=== PATIENT | female | born 1950 | race Caucasian/White ===

== ENCOUNTER 2022-02-18 07:50 | Outpatient (CLI) | payer MEDICARE, BC, SELFPAY ==
--- OUTSIDE RECORDS SUMMARY | 2022-02-18 08:13 | XMS_ITS | Clinical Summary ---
:1950 Author Organization [facility] [place] [address] Care Team Providers Name Role Phone Navin Watt MD Primary Care Provider Allergies No known active allergies Medications Medication Sig Dispensed Refills Start Date End Date Status ACETAMINOPHEN ORAL Take by mouth 0 Active each time if needed. cyanocobalamin (VITAMIN Take 1,000 mcg 0 Active B-12) 1,000 mcg tablet by mouth once daily. cholecalciferol (VITAMIN Take 2,000 Units 0 Active D-3) 2,000 unit capsule by mouth once daily. DIPHENHYDRAMINE HCL ORAL Take by mouth 0 Active each time if needed. lecithin 1,200 mg cap Take by mouth. 0 Active vitamin e 400 unit Take 400 Units 0 Active capsule by mouth once daily. MULTIVITAMIN ORAL Take by mouth 0 Active once daily. aspirin (ECOTRIN) 81 mg Take 81 mg by 0 Active enteric coated tablet mouth once daily with a meal. calcium Take by mouth 0 Active carbonate-vitamin D3 600 once daily. mg(1,500mg) -100 unit cap ascorbic acid, vitamin Take 500 mg by 0 Active C, (VITAMIN C) 500 mg mouth once tablet daily. atorvastatin (LIPITOR) Take 40 mg by 10 02/09/2018 Active 40 mg tablet mouth at bedtime. nitroglycerin Place 1 tablet 25 tablet 0 02/21/2018 Active (NITROSTAT) 0.4 mg under the tongue sublingual every 5 minutes tabletIndications: ASHD if needed. (arteriosclerotic heart disease) Active Problems Problem Noted Date Fibromyalgia 01/15/2018 Gastritis 01/15/2018 Dyslipidemia 01/15/2018 History of cataract surgery 01/15/2018 Family history of premature CAD Abnormal cardiovascular stress test Bilateral carotid bruits Overview: -mild common carotid intimal thickening per 01/2018 carotid US ASHD (arteriosclerotic heart disease) Abnormal cardiovascular stress test Family History Medical History Relation Name Comments Heart Disease Other numerous family members have had coronary artery disease in their 40's-50's Relation Name Status Comments Other Social History Tobacco Use Types Packs/Day Years Used Date Never Smoker Smokeless Tobacco: Never Used Alcohol Use Standard Drinks/Week Comments No 0 (1 standard drink = 0.6 oz pure alcoho l) Sex Assigned at Date Recorded Not on file Obstetrics History Last Filed Vital Signs Vital Sign Reading Time Taken Comments Blood Pressure 123/79 02/21/2018 4:45 PM CDT Pulse 78 02/21/2018 4:45 PM CDT Temperature 36.2 ??C (97.2 ??F) 02/21/2018 4:45 PM CDT Respiratory Rate 16 02/21/2018 4:45 PM CDT Oxygen Saturation 97% 02/21/2018 4:45 PM CDT Inhaled Oxygen Concentration - - Weight 61.3 kg (135 lb 3.2 oz) 02/21/2018 8:58 AM CDT Height 157.5 cm (5' 2) 02/21/2018 8:58 AM CDT Body Mass Index 24.73 02/21/2018 8:58 AM CDT Plan of Treatment Health Maintenance Due Date Last Done Comments COVID-19 vaccine series (#1) 1950 Tdap 1959 Depression screening for age 12+ 1960 BMI (ht and wt on same day) for age 18+ 1966 Hepatitis C screening for age 18-79 1966 Tetanus booster 1968 Colonoscopy through age 75 1993 Mammogram for age 45-75 1993 Zoster (shingles) series for age 50+ (1 of 2) 1998 DEXA/DXA scan for age 65+ 2013 Pneumococcal series for age 65+ (1 - PCV) 2013 Influenza for age 65+ 01/27/2022 Lipids for age 45-75 02/21/2023 02/21/2018 Results Not on filefrom Last 3 Months Insurance Payer Benefit Plan / Subscriber ID Effective Dates Phone Addre ss Type Group MEDICARE PART B MEDICARE PART B [id number] 2013-Prese ATTN: CLAIMS - HB USE ONLY HB ONLY nt [address] [place] [address] [place] BLUE CROSS [id number] 2016-Presen [address] [address] [place] [address] [place], [place] [id number] BL[place] BL[place] [id number] 2016-[place] [address] [address] [place] [address] [place], [place] [id number] Advance Directives Documents on File Type Date 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
[2022-02-18 09:38] LABS: Albumin* 4.6 g/dL (3.3-5.0)
[2022-02-18 09:39] LABS: Chloride* 99 mmol/L (96-114); Potassium* 4.2 mmol/L (3.6-5.1); Sodium* 140 mmol/L (135-149)
[2022-02-18 09:41] LABS: Bilirubin Total* 0.5 mg/dL (0.1-1.5); Carbon Dioxide* 33 mmol/L (20-32); Cholesterol* 187 mg/dL (90-199); Creatinine* 0.7 mg/dL (0.5-1.5); Estimated Glomerular Filt Rate 91 ml/min
[2022-02-18 09:42] LABS: Alanine Aminotransferase* 16 U/L (4-35); Alkaline Phosphatase* 76 U/L (40-150); Aspartate Amino Transferase* 27 U/L (12-35); Blood Urea Nitrogen* 18 mg/dL (7-30); Calcium* 9.7 mg/dL (8.4-10.6); Glucose* 117 mg/dL (60-115); Total Protein* 7.9 g/dL (6.0-8.3); Triglycerides* 108 mg/dL (40-149)
[2022-02-18 09:43] LABS: HDL Cholesterol* 55 mg/dL (>=50); LDL Cholesterol Calculated 110 mg/dL (<100)
[2022-02-18 09:57] LABS: Vitamin D 25 Hydroxy* 66 ng/mL (30-80)
[2022-02-18 12:03] LABS: Vitamin B12* 304 pg/mL (243-894)
== END 2022-02-18 07:51 | disposition home or self-care (01) ==
PROVIDERS: PCP Family Medicine; Visit Provider Family Medicine
DX: M85.80 Other specified disorders of bone density and structure, unspecified site (principal); R53.83 Other fatigue; E78.5 Hyperlipidemia, unspecified; E53.8 Deficiency of other specified B group vitamins
CPT/HCPCS: 80053; 80061; 82306; 82607; 84443

== ENCOUNTER 2022-02-21 14:40 | Outpatient (CLI) | payer MEDICARE, BC, SELFPAY ==
--- OUTSIDE RECORDS SUMMARY | 2022-02-21 14:43 | XMS_ITS | Clinical Summary ---
:1950 Author Organization [employer] 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
--- NOTE | 2022-02-21 15:00 | CRLHL7_ITS ---
For Patients: As a result of the Century Cures Act, medical imaging exams and procedure reports are released immediately into your electronic medical record. You may view this report before your referring provider. If you have questions, please contact your health care provider. BILATERAL DIGITAL SCREENING MAMMOGRAM WITH COMPUTER-AIDED DETECTION, 02/21/2022 CLINICAL HISTORY: Routine screening exam. COMPARISON: 02/08/2021, 07/16/2019, 06/13/2017, 04/20/2015. TECHNIQUE: Digital mammogram in CC and MLO projections including computer-aided detection (CAD). BREAST COMPOSITION: The breasts are heterogeneously dense, which may obscure small masses. FINDINGS: RIGHT Breast: Focal asymmetric density medial breast 3 cm from the nipple CC view only. LEFT Breast: No suspicious findings. IMPRESSION: RIGHT breast asymmetry/mass. RECOMMENDATIONS: Additional mammographic views of the RIGHT breast including 3D CC and 3D MLO. RIGHT breast ultrasound may also be required. BI-RADS Category 0: Incomplete: Need Additional Imaging Evaluation and/or Prior Mammograms for Comparison The [facility] will contact the patient for follow-up. A lay language report of this examination will be provided to the patient. Dictated by Thee Armando MD @ 02/22/2022 8:57:58 AM PT/Dictated by: Thee Armando MD @ 02/22/2022 8:58:00 AM (Electronically Signed)
== END 2022-02-21 14:41 | disposition home or self-care (01) ==
LOC: MAMMO 14:41
PROVIDERS: PCP Family Medicine; Visit Provider Family Medicine
DX: Z12.31 Encounter for screening mammogram for malignant neoplasm of breast (principal); N63.10 Unspecified lump in the right breast, unspecified quadrant
CPT/HCPCS: 77063; 77067

== ENCOUNTER 2022-02-24 07:47 | Outpatient (CLI) | payer MEDICARE, BC, SELFPAY ==
--- OUTSIDE RECORDS SUMMARY | 2022-02-24 07:49 | XMS_ITS | Clinical Summary ---
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
--- NOTE | 2022-02-24 08:00 | CRLHL7_ITS ---
For Patients: As a result of the Century Cures Act, medical imaging exams and procedure reports are released immediately into your electronic medical record. You may view this report before your referring provider. If you have questions, please contact your health care provider. Indication: Follow-up lung nodules Technique: Noncontrast CT chest Please note that all CT scans at this facility use dose modulation, iterative reconstruction, and/or weight-based dosing when appropriate to reduce radiation dose to as low as reasonably achievable. Comparison: 07/19/2018 Findings: Stable size and number of bilateral pulmonary nodules. The largest nodule on the left is located within the left lower lobe, , measuring 6 millimeters. The largest noncalcified nodule on the right measures 8 millimeters and is located within the right lower lobe, . stable calcified nodule within the right perihilar lung measures 1 cm, as before, . Other smaller nodules are present elsewhere. Vascular calcifications in the coronary arteries. No pleural effusion or pulmonary edema. No pneumothorax or infiltrate. No adenopathy. Simple cyst within the right hepatic lobe. No fracture. Impression: Stable bilateral pulmonary nodules measuring up to 1 cm. More than 3 years stability is present and no further follow-up necessary. Please note that all CT scans at this facility use dose modulation, iterative reconstruction, and/or weight-based dosing when appropriate to reduce radiation dose to as low as reasonably achievable. Dictated by Thee Armando MD @ 02/24/2022 9:14:47 AM (Electronically Signed)
== END 2022-02-24 07:48 | disposition home or self-care (01) ==
LOC: CT 07:47
PROVIDERS: PCP Family Medicine; Visit Provider Family Medicine
DX: R91.8 Other nonspecific abnormal finding of lung field (principal)
CPT/HCPCS: 71250

== ENCOUNTER 2022-03-01 09:56 | Outpatient (CLI) | payer MEDICARE, BC, SELFPAY ==
--- NOTE | 2022-03-01 09:45 | CRLHL7_ITS ---
For Patients: As a result of the Cures Act, medical imaging exams and procedure reports are released immediately into your electronic medical record. You may view this report before your referring provider. If you have questions, please contact your health care provider. RIGHT DIAGNOSTIC DIGITAL MAMMOGRAM WITH COMPUTER-AIDED DETECTION AND TOMOSYNTHESIS, 03/01/2022 INDICATION: Possible asymmetry. TECHNIQUE: CC and MLO views were obtained using full-field digital technique and interpreted with the benefit of computer-aided detection and tomosynthesis. COMPARISON FILM: 07/16/2019. BREAST COMPOSITION: The breasts are heterogeneously dense, which may obscure small masses. FINDINGS: Spot compression views demonstrate spreading out of the glandular tissue. The appearance of the RIGHT breast is stable from old mammograms. IMPRESSION: No mammographic findings for malignancy. RECOMMENDATION: Recommend return to yearly screening mammography. ASSESSMENT: BI-RADS Category 2: Benign A lay language report of this examination will be provided to the patient. RADHA TREVINO M.D. Diagnostic/Breast Radiologist [email or web address] Transcribed: 1:[address]/Dictated by: Radha Trevino MD @ 03/01/2022 1:22:00 PM (Electronically Signed)
--- OUTSIDE RECORDS SUMMARY | 2022-03-01 10:11 | XMS_ITS | Clinical Summary ---
:1950 Author Organization [facility] [place] [address] Care Team Providers Name Role Phone Navin [...] Group MEDICARE PART B MEDICARE PART B [id number] 2013-Prese ATTN: CLAIMS - HB USE ONLY HB ONLY nt [address] 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
== END 2022-03-01 09:57 | disposition home or self-care (01) ==
PROVIDERS: PCP Family Medicine; Visit Provider Family Medicine
DX: R92.8 Other abnormal and inconclusive findings on diagnostic imaging of breast (principal); R92.2 Inconclusive mammogram
CPT/HCPCS: 77065; G0279

== ENCOUNTER 2022-03-10 08:30 | Outpatient (RCR) | payer MEDICARE, BC, SELFPAY | END 2022-03-10 10:54 | disposition home or self-care (01) | PROVIDERS: PCP Family Medicine; Visit Provider Family Medicine | DX: M25.511 Pain in right shoulder (principal); Z51.89 Encounter for other specified aftercare | CPT/HCPCS: 97110; 97140; 97161 ==

== ENCOUNTER 2023-02-22 08:53 | Outpatient (CLI) | payer MEDICARE, BC, SELFPAY ==
--- OUTSIDE RECORDS SUMMARY | 2023-02-25 13:43 | XMS_ITS | Continuity of Care Document ---
Author Name Unknown Organization [facility] Address [address] [address] [place] [address] Phone Care Team Providers Care Public Speaking Teacher Name Role Phone Unavailable Unavailable Unavailable Allergies, Adverse Reactions, Alerts Substance Reaction Status Criticality No Known Allergies Active No Inform ation Medications Medication Instructions Dosage Effective Dates (start - stop) Status Comments atorvastatin 40 mg tablet take 1 tablet by oral route every day 40 MG - Active aspirin 81 mg tablet,delayed release take 1 tablet by oral route every day 81 MG - Active Vitamin D3 25 mcg (1,000 unit) tablet take 1 Tablet by Oral route every day 1 Tablet - Active Procedures Procedure Date Colonoscopy Flex; W/remov Les- 21 Colonoscopy Flex; W/bx 1/mx Level Iv-surg Path Gross/micro Advance Directives Directive Yes / No Effective Date File Name No Information Encounters Encounter Description Practice Location Reason(s) For Visit Diagnoses Date Provider Providers Copied on Encounter [facility], [address] [address], [place], [id number], [place] tel:[phone] [facility] No Information No Information Referring Provider: Yrn Borja MD, [address], [place], [address] . tel:[phone] [facility], [address] [address], [place], [id number], tel:[phone] [facility] GI Symptoms or Concerns (chief complaint) Positive colorectal cancer screening using Cologuard testColorectal polypsTortuous colonBenign neoplasm of cecumBenign neoplasm of descending colonOther fecal abnormalitiesO ther specified congenital malformations of intestine Jonh Pool. [address] [facility] [facility] [address], [place], [place], [id number], [place]. tel:[phone] Referring Provider: Annemarie Thomas MD, [address] [place], [address]. tel:[phone] [facility], [address] [address], [place], [place], [id number], [place] tel:[phone] No Information No Information Referring Provider: Annemarie Thomas MD, [address] [place], [address]. tel:[phone] Family History Family Member Type Diagnosis Age At Onset Mother Problem (finding) malignant neoplasm of u terus Sister Problem (finding) Alive and well Father Problem (finding) Daughter Problem (finding) Alive and well Immunizations Vaccine Date Status Comments influenza, high-dose seasona l, quadrivalent, .7mL dose, preservative free administered Note: [facility] bi-direct ional interface ; Source: Other Registry SARS-COV-2 (COVID-19) vaccin e, mRNA, spike protein, LNP, preservative free, 100 mcg/0.5mL dose administered Note: [facility] bi-direct ional interface ; Source: Other Registry SARS-COV-2 (COVID-19) vaccin e, mRNA, spike protein, LNP, preservative free, 100 mcg/0.5mL dose administered Note: [facility] bi-direct ional interface ; Source: Other Registry Pneumovax 23 administered Note: [facility] bi-d irectional interface ; Source: Other Registry Afluria Qd administered Note: [facility] bi-directional interface ; Source: Other Registry Prevnar 13 administered Note: [facility] bi-d irectional interface ; Source: Other Registry influenza, high dose seasona l, preservative-free administered Note: [facility] bi-direct ional interface ; Source: Other Registry influenza, high dose seasona l, preservative-free administered Note: [facility] bi-direct ional interface ; Source: Other Registry influenza, high dose seasona l, preservative-free administered Note: [facility] bi-direct ional interface ; Source: Other Registry influenza, high dose seasona l, preservative-free administered Note: [facility] bi-direct ional interface ; Source: Other Registry Influenza administered Note: [facility] bi-d irectional interface ; Source: Other Registry Influenza, seasonal, injecta ble, preservative free administered Note: [facility] bi-direct ional interface ; Source: Other Registry tetanus toxoid, reduced diphtheria toxoid, and acellular pertussis vaccine, adsorbed administered Note: [facility] b i-directional interface ; Source: Other Registry Payers Payer name Insurance type Covered democrat ID Authoriza tion(s) Blue Cross [place] Blue BL [id number] Social History Type Description Quantity Date Captured Comments Sex Female Smoking Status No Information Chief Complaint And Reason For Visit No Information Reason For Referral Reason For Referral No Information History Of Present Illness Encounter Date Complaint History Of Prese nt Illness GI Symptoms or Concerns Functional Status Date Functional Assessmen t No Information Instructions Date Instruction Additional Infor mation Colon Cancer Prevention Related to Colorectal polyps Colon Polyps Related to Color ectal polyps Assessments Type Assessment Date No Information Patient Care Teams Name Effective Dates (start - stop) Status Members No Information
== END 2023-02-22 08:54 | disposition home or self-care (01) ==
LOC: NFLDREF 02-25 13:41
PROVIDERS: PCP Family Medicine; Referring Provider Family Medicine; Visit Provider Family Medicine
DX: Z00.00 Encounter for general adult medical examination without abnormal findings (principal); E78.5 Hyperlipidemia, unspecified; R73.01 Impaired fasting glucose; E53.8 Deficiency of other specified B group vitamins; M79.7 Fibromyalgia; Z13.21 Encounter for screening for nutritional disorder; Z79.1 Long term (current) use of non-steroidal anti-inflammatories (NSAID); M85.80 Other specified disorders of bone density and structure, unspecified site; I25.10 Atherosclerotic heart disease of native coronary artery without angina pectoris
CPT/HCPCS: 80053; 80061; 82306; 82607

== ENCOUNTER 2023-05-25 10:00 | Outpatient (CLI) | payer MEDICARE, BC, SELFPAY ==
--- NOTE | 2023-05-25 10:15 | CRLHL7_ITS ---
For Patients: As a result of the Century Cures Act, medical imaging exams and procedure reports are released immediately into your electronic medical record. You may view this report before your referring provider. If you have questions, please contact your health care provider. BILATERAL SCREENING MAMMOGRAM WITH COMPUTER-AIDED DETECTION TECHNIQUE: CC and MLO views were obtained. These mammographic images have been obtained using full-field digital technique. These mammographic images were interpreted with the benefit of computer-aided detection. COMPARISON FILM: 02/21/22, 02/08/21, 07/16/19. FINDINGS: The breasts are heterogeneously dense, which may obscure small masses IMPRESSION: There is no radiographic evidence for malignancy. ASSESSMENT: BI-RADS Category 1: Negative RECOMMENDATION: Routine screening mammogram in 1 year. A lay language report of this examination will be provided to the patient. Thee Armando M.D. Diagnostic Radiologist [email or web address] CHIQUITA/Dictated by: Thee Armando MD @ 05/25/2023 10:50:00 AM (Electronically Signed)
== END 2023-05-25 10:01 | disposition home or self-care (01) ==
LOC: MAMMO 10:02
PROVIDERS: PCP Family Medicine; Visit Provider Family Medicine
DX: Z12.31 Encounter for screening mammogram for malignant neoplasm of breast (principal); R92.2 Inconclusive mammogram
CPT/HCPCS: 77067

== ENCOUNTER 2024-04-04 08:28 | Outpatient (CLI) | payer MEDICARE, BC, SELFPAY ==
--- OUTSIDE RECORDS SUMMARY | 2024-04-08 12:02 | XMS_ITS | Clinical Summary ---
Author Organization [facility] [facility] Address [place], [place] [address] Care Team Providers Care Draw Furnace Tender Name Role Phone Navin Watt MD Primary Care Provider [phone] Allergies No known active allergies Medications Medication Sig Dispensed Refills Start Date End Date Status ACETAMINOPHEN ORAL Take by mouth each time if needed. Active cyanocobalamin (VITAMIN B-12) 1,000 mcg tablet Take 1,000 mcg by mouth once daily. Active cholecalciferol (VITAMIN D-3) 2,000 unit capsule Take 2,000 Units by mouth once daily. Active DIPHENHYDRAMINE HCL ORAL Take by mouth each time if needed. Active lecithin 1,200 mg cap Take by mouth. Active vitamin e 400 unit capsule Take 400 Units by mouth once daily. Active MULTIVITAMIN ORAL Take by mouth once daily. Active aspirin (ECOTRIN) 81 mg enteric coated tablet Take 81 mg by mouth once daily with a meal. Active calcium carbonate-vitamin D3 600 mg(1,500mg) -100 unit cap Take by mouth once daily. Active ascorbic acid, vitamin C, (VITAMIN C) 500 mg tablet Take 500 mg by mouth once daily. Active atorvastatin (LIPITOR) 40 mg tablet Take 40 mg by mouth at bedtime. 10 02/09/2018 Active nitroglycerin (NITROSTAT) 0.4 mg sublingual tabletIndications:ASHLEY D (arteriosclerotic heart disease) Place 1 tablet under the tongue every 5 minutes if needed. 25 tablet 02/21/2018 Active Active Problems Problem Noted Date Diagnosed Date Fibromyalgia 01/15/2018 Gastritis 01/15/2018 Dyslipidemia 01/15/2018 History of cataract surgery 01/15/2018 Family history of premature CAD Abnormal cardiovascular stress test Bilateral carotid bruits Overview (02/21/2018): -mild common carotid intimal thickening per 01/2018 carotid US ASHD (arteriosclerotic heart disease) Abnormal cardiovascular stress test Family History Medical History Relation Name Comments Heart Disease Other numerous famil y members have had coronary artery disease in their 40's-50's Relation Name Status Comments Other Social History Tobacco Use Types Packs/Day Years Used Date Smoking Tobacco: Never Smokeless Tobacco: Never Alcohol Use Standard Drinks/Week Comments No 0 (1 standard drink = 0.6 oz pur e alcohol) Sex and Gender Information Value Date Recorded Sex Assigned at Not on file Gender Identity Not on file Sexual Orientation Not on file Obstetrics History Last Filed Vital Signs Vital Sign Reading Time Taken Comments Blood Pressure 123/79 02/21/2018 4:45 PM CDT Pulse 78 02/21/2018 4:45 PM CDT Temperature 36.2 ??C (97.2 ??F) 02/21/2018 4:45 PM CD T Respiratory Rate 16 02/21/2018 4:45 PM CDT Oxygen Saturation 97% 02/21/2018 4:45 PM CDT Inhaled Oxygen Concentration - - Weight 61.3 kg (135 lb 3.2 oz) 02/21/2018 8:58 AM CDT Height 157.5 cm (5' 2) 02/21/2018 8:58 AM CDT Body Mass Index 24.73 02/21/2018 8:58 AM CDT Plan of Treatment Health Maintenance Due Date Last Done Comments Tdap 1959 Depression screening for age 12+ 1960 BMI (ht and wt on same day) for age 18+ 1966 Hepatitis C screening for age 18-79 1966 Tetanus booster 1968 Colonoscopy through age 75 1993 Zoster (shingles) series for age 50+ (1 of 2) 04/11/19 98 DEXA/DXA scan for age 65+ 2013 Pneumococcal series for age 65+ (1 of 1 - PCV) 013 Lipids for age 45-75 02/21/2023 02/21/2018 RSV vaccine for adults or pr egnancy (1 - 1-dose 75+ series) 2023 COVID-19 vaccine series ( - season) 4 Influenza for age 65+ 01/28/2024 Procedures Procedure Name Priority Date/Time Associated Diagnosis Comments LIPID PANEL FABIAN 02/21/2018 8:55 AM CDT from Last 3 Months or Most Recently Relevant to Health Maintenance Results * Lipid Panel (02/21/2018 8:55 AM CDT) CHOLESTEROL,TOTAL 189 100 - 199 mg/dL 02/21/2018 9:22 AM CDT [facility] TRIGLYCERIDES 82 <150 mg/dL 02/21/2018 9:22 AM CDT [facility] HDL CHOLESTEROL 51 >40 mg/dL 8 9:22 AM CDT [facility] NON-HDL CHOLESTEROL 138 <145 mg/dl 02/21/2018 9:22 AM CDT [facility] CHOL/HDL RATIO 3.71 <4.50 02/21/2018 9:22 AM CDT [facility] LDL CHOLESTEROL 122 <=130 mg/dL 02/21/2018 9:22 AM CDT [facility] PROVIDER ORDERED STATUS RANDOM 02/21/2018 9:22 AM CDT [facility] Blood BLOOD SPECIMEN / Unknown Venipuncture / Unknown 02/21/2018 8:55 AM CDT 02/21/2018 9:01 AM CDT Meli Manjarrez NP CHEMISTRY [facility] [address] [place] [address], [place] from Last 3 Months or Most Recently Relevant to Health Maintenance Advance Directives Documents on File Type Date Recorded Patient Laboratory Technical Specialist Expl anation Healthcare Directive 02/28/2018 9:03 AM * Full Code (Latest Code Status on File) Date Activated Date Inactivated Comments 02/21/2018 8:58 AM 02/21/2018 7:19 PM Care Teams Draw Furnace Tender Relationship Specialty Start Date End Date Navin Watt MD PCP - General Family Practice 01/15/18
== END 2024-04-04 08:29 | disposition home or self-care (01) ==
LOC: NFLDREF 04-08 11:58
PROVIDERS: PCP Family Medicine; Referring Provider Family Medicine; Visit Provider Family Medicine
DX: R73.01 Impaired fasting glucose (principal); E78.5 Hyperlipidemia, unspecified; E53.8 Deficiency of other specified B group vitamins; I25.10 Atherosclerotic heart disease of native coronary artery without angina pectoris; M85.80 Other specified disorders of bone density and structure, unspecified site; Z79.1 Long term (current) use of non-steroidal anti-inflammatories (NSAID)
CPT/HCPCS: 80053; 80061; 82306; 82607

== ENCOUNTER 2024-07-09 08:11 | Outpatient (CLI) | payer MEDICARE, BC, SELFPAY | END 2024-07-09 08:12 | disposition home or self-care (01) | LOC: NFLDREF 07-12 03:38 | PROVIDERS: PCP Family Medicine; Referring Provider Family Medicine; Visit Provider Family Medicine | DX: E78.5 Hyperlipidemia, unspecified (principal); I25.10 Atherosclerotic heart disease of native coronary artery without angina pectoris | CPT/HCPCS: 80061 ==

== ENCOUNTER 2024-07-30 11:11 | Outpatient (CLI) | payer MEDICARE, BC, SELFPAY ==
--- NOTE | 2024-07-30 11:30 | CRLHL7_ITS ---
For Patients: As a result of the Century Cures Act, medical imaging exams and procedure reports are released immediately into your electronic medical record. You may view this report before your referring provider. If you have questions, please contact your health care provider. BILATERAL SCREENING MAMMOGRAM WITH COMPUTER-AIDED DETECTION AND TOMOSYNTHESIS TECHNIQUE: CC and MLO views were obtained. These mammographic images have been obtained using full-field digital technique. These mammographic images were interpreted with the benefit of computer-aided detection. Breast Tomosynthesis was used in this interpretation. COMPARISON FILM: 05/25/23, 02/21/22, 02/08/21. FINDINGS: The breasts are heterogeneously dense, which may obscure small masses IMPRESSION: There is no radiographic evidence for malignancy. ASSESSMENT: BI-RADS Category 2: Benign RECOMMENDATION: Routine screening mammogram in 1 year. A lay language report of this examination will be provided to the patient. Thee Armando M.D. Diagnostic Radiologist [email or web address] [email or web address] Transcribed: 4:07 [email or web address]/Dictated by: Thee Armando MD @ 07/30/2024 12:24:00 PM (Electronically Signed)
== END 2024-07-30 11:12 | disposition home or self-care (01) ==
LOC: MAMMO 11:12
PROVIDERS: PCP Family Medicine; Visit Provider Family Medicine
DX: Z12.31 Encounter for screening mammogram for malignant neoplasm of breast (principal); R92.333 Mammographic heterogeneous density, bilateral breasts
CPT/HCPCS: 77063; 77067

== ENCOUNTER 2024-10-12 10:03 | Outpatient (CLI) | payer MEDICARE, BC, SELFPAY | END 2024-10-12 10:04 | disposition home or self-care (01) | PROVIDERS: PCP Family Medicine | DX: N30.01 Acute cystitis with hematuria (principal); B96.20 Unspecified Escherichia coli [E. coli] as the cause of diseases classified elsewhere | CPT/HCPCS: 87086 ==

== ENCOUNTER 2025-02-11 09:19 | Outpatient (CLI) | payer MEDICARE, BC, SELFPAY | END 2025-02-11 09:20 | disposition home or self-care (01) | LOC: NFLDREF 02-17 00:53 | PROVIDERS: PCP Family Medicine; Referring Provider Family Medicine | DX: N30.01 Acute cystitis with hematuria (principal) | CPT/HCPCS: 87086 ==

== ENCOUNTER 2025-04-06 11:29 | Outpatient (CLI) | payer MEDICARE, BC, SELFPAY | END 2025-04-06 11:30 | disposition home or self-care (01) | LOC: NFLDREF 04-10 09:08 | PROVIDERS: PCP Family Medicine; Referring Provider Family Medicine; Visit Provider Nurse Practitioner Family | DX: N30.91 Cystitis, unspecified with hematuria (principal) | CPT/HCPCS: 87086 ==

== ENCOUNTER 2025-04-21 07:40 | Outpatient (CLI) | payer MEDICARE, BC, SELFPAY | END 2025-04-21 07:41 | disposition home or self-care (01) | LOC: NFLDREF 04-25 10:21 | PROVIDERS: PCP Family Medicine; Referring Provider Family Medicine; Visit Provider Family Medicine | DX: E78.5 Hyperlipidemia, unspecified (principal); R73.03 Prediabetes; M85.89 Other specified disorders of bone density and structure, multiple sites; R53.83 Other fatigue | CPT/HCPCS: 80053; 80061; 82306; 84443 ==